=== PATIENT | male | born 1980 | race Caucasian/White ===

== ENCOUNTER 2022-03-02 21:57 | Emergency (ER) | payer OTHER ==
[2022-03-02] MEDS ORDERED: Lidocaine 1% 5 ML VIAL INJECT ONE (22:21)
[2022-03-02] MEDS: Bacitracin Oint 1 GM U/D Packet TOP ONE ×2 (22:46→22:59)
[2022-03-02] MEDS ORDERED: Diphtheria,Pertussis(Acell),Tetanus Vaccine 0.5 ML Syringe IM ONE (23:02)
== END 2022-03-02 23:18 | disposition home or self-care (01) ==
LOC: JP.ED 21:57
DX: S60.450A Superficial foreign body of right index finger, initial encounter (principal); I10 Essential (primary) hypertension; Z79.899 Other long term (current) drug therapy; W45.8XXA Other foreign body or object entering through skin, initial encounter
CPT/HCPCS: 99281; 99283